=== PATIENT | female | born 1990 | race Two or more races ===

== ENCOUNTER 2021-04-21 06:14 | Emergency (ER) | payer BC, OTHER ==
[~2021-04-21] VITALS: Ht 154.9 cm; Wt 65.8 kg
[2021-04-21 06:16] VITALS: BP 131/89
[2021-04-21] MEDS ORDERED: cefTRIAXone SOD 1,000 MG VL IM ONE (06:45)
[2021-04-21] MEDS ORDERED: methylPREDNISolone SOD SUCC 125 MG/2 ML VL IM ONE (06:45)
[2021-04-21] MEDS ORDERED: AMOX-277 PO (07:05)
[2021-04-21] MEDS ORDERED: IBUP600T27 PO (07:05)
== END 2021-04-21 07:07 | disposition home or self-care (01) ==
LOC: ER 06:14
DX: H66.91 Otitis media, unspecified, right ear (principal); J03.90 Acute tonsillitis, unspecified
CPT/HCPCS: 96372; 99284; J0696; J2930

== ENCOUNTER 2021-08-08 11:56 | Emergency (ER) | payer BC, MEDICAID ==
[~2021-08-08] VITALS: Ht 154.9 cm; Wt 66.2 kg
[~2021-08-08 11:56] MED LIST: AMOX-277 PO; IBUP600T27 PO
[2021-08-08 12:45] LABS: Urine Bacteria NONE SEEN /hpf (None Seen); Urine Blood Negative /uL (Negative); Urine Specific Gravity 1.011 (1.001-1.035); Urine WBC <1 /hpf (0 - 5)
[2021-08-08 16:50] VITALS: BP 140/93
== END 2021-08-08 18:50 | disposition home or self-care (01) ==
LOC: ER 11:56
DX: O46.8X9 Other antepartum hemorrhage, unspecified trimester (principal); Z3A.01 Less than 8 weeks gestation of pregnancy
CPT/HCPCS: 36415; 76801; 81001; 84702